=== PATIENT | male | born 1960 | race African-American/Black ===

== ENCOUNTER → 2017-03-24 | Outpatient (CLI) | payer OTHER ==
[~2017-03-24] MED LIST: CYAN100020 PO; DIPH-384 PO; DIPH50TA10 PO; FOLI1TAB7 PO; HALO2TAB PO; HYDR25TA4 PO; LEVE500T26 PO; LISI5TAB3 PO; THIA1TAB11 PO
== END ==
LOC: C.LABSPEC 12:38
PROVIDERS: ATTEND Nurse Practitioner Adult Health
DX: G40.909 Epilepsy, unspecified, not intractable, without status epilepticus (principal)